=== PATIENT | male | born 2000 | race Caucasian/White ===

== ENCOUNTER 2020-05-22 23:23 | Emergency (ER) | payer MEDICAID ==
[~2020-05-22] VITALS: Ht 177.8 cm; Wt 59.1 kg
[2020-05-23 01:19] VITALS: BP 156/82
== END 2020-05-23 01:27 | disposition home or self-care (01) ==
LOC: EMS 23:24
DX: L30.9 Dermatitis, unspecified (principal)
CPT/HCPCS: Z7502

== ENCOUNTER 2020-12-02 13:58 | Emergency (ER) | payer MEDICAID ==
[~2020-12-02] VITALS: Ht 175.3 cm; Wt 63.6 kg
[2020-12-02 14:09] VITALS: BP 156/67
== END 2020-12-02 16:50 | disposition left against medical advice (07) ==
LOC: EMS 14:17
DX: R10.9 Unspecified abdominal pain (principal); Z53.21 Procedure and treatment not carried out due to patient leaving prior to being seen by health care provider